=== PATIENT | male | born 1955 | race Caucasian/White ===

== ENCOUNTER 2017-03-16 09:27 | Emergency (ER) | payer MEDICAID, SELFPAY | END 2017-03-16 10:48 | disposition home or self-care (01) | PROVIDERS: Emergency Provider Nurse Practitioner; Family Provider Family Medicine; Visit Provider Nurse Practitioner | DX: J06.9 Acute upper respiratory infection, unspecified (principal); N39.0 Urinary tract infection, site not specified; I10 Essential (primary) hypertension; Z79.899 Other long term (current) drug therapy; E78.5 Hyperlipidemia, unspecified; E03.9 Hypothyroidism, unspecified | CPT/HCPCS: 71020; 81003; 96372; 99202 ==